=== PATIENT | female | born 1985 | race Caucasian/White ===

== ENCOUNTER → 2023-12-30 06:51 | Outpatient (REF) | payer OTHER, SELFPAY | LOC: PNTC 06:51 | PROVIDERS: ATTENDING PHYSICIAN Obstetrics & Gynecology | DX: O41.00X0 Oligohydramnios, unspecified trimester, not applicable or unspecified (principal); O34.219 Maternal care for unspecified type scar from previous cesarean delivery | CPT/HCPCS: 76816 ==

== ENCOUNTER 2024-01-27 16:42 | Inpatient (IN) | payer OTHER, SELFPAY ==
[2024-01-27 16:52] VITALS: BP 122/70; BMI 31.4
[2024-01-27] MEDS: LR 1000 IV ×3 (17:00→21:08)
[2024-01-27 17:11] LABS: Hemoglobin 10.3 g/dL (12.0-16.0); Mean Corp Hgb Conc. 33.2 g/dL (33.0-37.0); Mean Corpuscular Volume 81.4 fL (81.0-99.0); Mean Platelet Volume 9.3 fL (7.4-10.4); Platelet Count 278 10^3/uL (130-400); Red Blood Cell Count 3.81 10^6/uL (4.20-5.40); Red Cell Dist. Width 14.3 % (11.5-14.5); White Blood Cell Count 12.8 10^3/uL (4.8-10.8)
[2024-01-27] MEDS: TYLENOL 1000 MG PO (17:42)
[2024-01-27] MEDS: BICITRA 30 ML PO (17:42)
[2024-01-27] MEDS: ANCEF 10 IV (17:59)
[2024-01-27] MEDS: PITOCIN 30 UNITS/NSS 500 ML IV (18:38)
[2024-01-27] MEDS: TRANEXAMIC ACID 100 IV (21:27)
[2024-01-27] MEDS: DILAUDID 1 MG IV (22:43)
[2024-01-27] MEDS: BENADRYL 25 MG PO (22:59)
[2024-01-28] MEDS: PITOCIN 30 UNITS/NSS 500 ML IV (00:53)
[2024-01-28] MEDS: LR 1000 IV (00:54)
[2024-01-28 01:03] LABS: Hemoglobin 8.6 g/dL (12.0-16.0)
[2024-01-28] MEDS: MYLICON 80 MG PO ×2 (02:21→10:02)
[2024-01-28] MEDS: DILAUDID 1 MG IV ×3 (02:48→20:32)
[2024-01-28] MEDS: BENADRYL 25 MG IV (03:11)
[2024-01-28 07:27] LABS: % Basophils 0.2 % (0-2); % Immature Granulocytes 0.6 % (0-0.5); % Lymphocytes 9.1 % (20.5-51.1); % Monocytes 7.5 % (1.7-9.3); % Neutrophils 82.6 % (42.2-75.2); Absolute Basophils 0.1 10^3/uL (0-0.2); Absolute Immature Granulocytes 0.1 10^3/uL (0-0.05); Absolute Monocytes 1.6 10^3/uL (0.1-0.6); Hematocrit 21.7 % (37.0-47.0); Hemoglobin 7.4 g/dL (12.0-16.0); Mean Corp Hgb Conc. 34.1 g/dL (33.0-37.0); Mean Corpuscular Hgb 26.7 pg (27.0-31.0); Mean Corpuscular Volume 78.3 fL (81.0-99.0); Mean Platelet Volume 9.3 fL (7.4-10.4); Nucleated Red Blood Cells % 0 %; Platelet Count 239 10^3/uL (130-400); Red Blood Cell Count 2.77 10^6/uL (4.20-5.40); Red Cell Dist. Width 14.3 % (11.5-14.5); White Blood Cell Count 21.7 10^3/uL (4.8-10.8)
[2024-01-28] MEDS: PRENATAL PLUS 1 TABLET PO (07:50)
[2024-01-28] MEDS: SENOKOT-S 1 TABLET PO (07:50)
[2024-01-28] MEDS: BENADRYL 25 MG PO ×4 (07:50→21:51)
[2024-01-28] MEDS: NON-FORMULARY ITEM 875 MG PO ×2 (07:50→20:42)
[2024-01-28] MEDS: PERCOCET 5/325 1 TABLET PO (12:06)
[2024-01-28] MEDS: MOTRIN 600 MG PO ×2 (12:36→20:31)
[2024-01-28 16:30] LABS: Syphilis/T. pallidum Ab Reflex Negative (Negative)
[2024-01-28] MEDS: PERCOCET 5/325 2 TABLET PO ×2 (16:44→23:48)
[2024-01-28] MEDS: FERRLECIT 110 MG IV (16:45)
[2024-01-29] MEDS: MOTRIN 600 MG PO ×4 (03:34→22:12)
[2024-01-29] MEDS: PERCOCET 5/325 2 TABLET PO ×5 (03:59→22:11)
[2024-01-29] MEDS: NON-FORMULARY ITEM 875 MG PO ×2 (08:20→19:27)
[2024-01-29] MEDS: SENOKOT-S 1 TABLET PO (08:21)
[2024-01-29] MEDS: PRENATAL PLUS 1 TABLET PO (08:21)
[2024-01-29] MEDS: FERRLECIT 110 MG IV (14:05)
[2024-01-30] MEDS: MYLICON 80 MG PO (01:02)
[2024-01-30] MEDS: PERCOCET 5/325 2 TABLET PO (03:17)
[2024-01-30] MEDS: MOTRIN 600 MG PO (08:15)
[2024-01-30] MEDS: NON-FORMULARY ITEM 875 MG PO (08:15)
[2024-01-30] MEDS: PERCOCET 5/325 1 TABLET PO ×2 (08:15→12:45)
[2024-01-30] MEDS: PRENATAL PLUS 1 TABLET PO (08:15)
[2024-01-30] MEDS: SENOKOT-S 1 TABLET PO (08:15)
--- NOTE | 2024-01-30 10:47 | W.DS.TRANS ---
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
-
Discharge Instructions:
Discharge Diagnosis/Procedures rcs, anemia
Instructions:
Stand-Alone Forms: LDRP Delivery
Changes to Home Medications: No
Discharge Medications:
DC Medications w/original date entered in [facility]
Vitamin 1 tab PO DAILY Supplement 12/21/23
ibuprofen 600 mg tablet 600 mg PO Q6HPRN PRN cramps #90 tabs 01/30/24
oxycodone-acetaminophen 5 mg-325 mg tablet 1 tab PO Q4HPRN PRN moderate pain #10 tabs 01/30/24
Home Medication Changes
Pending Results: No
Total time spent discharging patient (in min): 20
[2024-01-30] MEDS: FERRLECIT IV (16:25)
== END 2024-01-30 16:43 | disposition home or self-care (01) | DRG 787 ==
LOC: LDRP 16:42
PROVIDERS: ADMITTING PHYSICIAN Obstetrics & Gynecology; ATTENDING PHYSICIAN Obstetrics & Gynecology
PROC: 10D00Z1 Extraction of Products of Conception, Low, Open Approach (ICD-10-PCS; 2024-01-27)
DX: O34.211 Maternal care for low transverse scar from previous cesarean delivery (principal); O41.03X0 Oligohydramnios, third trimester, not applicable or unspecified; O72.1 Other immediate postpartum hemorrhage; O99.02 Anemia complicating childbirth; Z3A.37 37 weeks gestation of pregnancy; Z37.0 Single live birth; N85.8 Other specified noninflammatory disorders of uterus
CPT/HCPCS: 88307; 59025; 76816; 76820; 85018; 85025; 85027; 86780; 86850; 86900; 86901; J2916

== ENCOUNTER 2024-02-01 17:31 | Emergency (ER) | payer OTHER, SELFPAY ==
[2024-02-01 17:36] VITALS: BP 125/80
--- NOTE | 2024-02-01 18:41 | ED.GENMED ---
History of Present Illness
General
Chief Complaint: DVT/Possible Blood Clot
Source: patient
Exam Limitations: none
Time Seen by Provider: 02/01/24 18:01
Travel History
Have you had any contact with someone who has COVID-19?: No
Do you have any symptoms of coronavirus? Fever > 100 degrees, chills, cough, shortness of breath, sore throat, loss of taste or smell, muscle aches, or headache?: No
History of Present Illness
History of Present Illness:
This is a 39 year old female taht comes in with c/o right arm redness and pain. States that she was here and had a on . States that she had an IV in the right arm. Today she noticed that the arm was swollen and slightly red and
hard. States that her doctor wanted her to come in and r/o a clot. States that she has had a headache. Denies any fever, chills, nausea, vomiting, diarrhea, dizziness.
Past History
Past History
ED Past Medical History: Psychiatric (Anxiety) and Other (Hemorrhagic ovarian cyst, Herniated disc, )
ED Past Surgical History: (X 3)
Social History
Tobacco: Non-smoker
Alcohol: None
Personal:
Living: with family
Family History
Family History: Negative Diabetes, Hypertension or CAD
Review of Systems
Review of Systems
All Other Systems: ROS reviewed and negative except as documented in HPI and ROS
Constitutional: Reports no symptoms; Denies fever or chills
EENT: Reports no symptoms
Respiratory: Reports no symptoms; Denies cough or trouble breathing
Cardiac: Reports no symptoms; Denies chest pain
ABD/GI: Reports no symptoms; Denies abdominal pain, nausea, vomiting or diarrhea
: Reports no symptoms
Musculoskeletal: Reports other (Right arm pain and swelling)
Skin: Reports other (Slight redness of the right arm)
Neurological: Reports headache; Denies dizzy
Psychiatric: Reports no symptoms
Phy Exam
General Physical Exam
General Presentation: well appearing and no apparent distress
General age: appears stated age
General Skin: warm and dry
General Habitus: normal
General Mental: alert
General Hydration: appears well hydrated
ENT Exam
ENT Exam: TM's normal, pharynx normal and neck supple
Eye Exam
Eye Exam: EOMI
Musculoskeletal Exam
Musculoskeletal Exam: full ROM and other (Slight swelling right forearm and hard to palpation. Peripheral pulse normal with brisk capillary refill)
Skin Exam
Skin Exam: normal color, warm/dry, no petechia and other (Very slight redness noted on forearm. Negative for increased warmth)
Psychiatric Exam
Psychiatric Exam: normal mood/affect
Course
Orders/Labs/Results
Orders:
Orders
02/01/24 17:42
US Arms, Right [US Periph Venous UPPER Ext RT] Urgent
Comment:
Reason For Exam: pain, swelling, redness, recent IV site
Vital Signs
Initial and Last Documented VS:
Initial Vital Signs
Temp Pulse Resp BP Pulse Ox
98.2 F 95 20 125/80 100
02/01/24 17:36 02/01/24 17:36 02/01/24 17:36 02/01/24 17:36 02/01/24 17:36
Last Documented Vital Signs
Temp Pulse Resp BP Pulse Ox
98.2 F 95 20 125/80 100
02/01/24 17:36 02/01/24 17:36 02/01/24 17:36 02/01/24 17:36 02/01/24 17:36
MDM/Problems Addressed
Differential Diagnosis Includes:
Phlebitis, DVT
MDM/Problems Addressed:
This is a 39 year old female that comes in with c/o right arm pain and slighlt swelling and redness. States that she had an IV in this arm when she was here for her on .
Will get US. Explained to patient that this may be a Phlebitis. Will have patient use warm compress and will place on an antibiotic.
Back into see patient. Explained that there is a thrombus but in a superficial vein. This is treated with warm compress 3-4 times daily for at least 20 min. Follow up with the family doctor for further evaluation. Return with any concerns.
Chronic conditions affecting care:
NA
Acute Exacerbation and/or Progression of Chronic Illness:
NA
*Radiology
Radiology exam reviewed: radiology read reviewed (US- No evidence of deep venous thrombosis of the right upper extremity. Thrombus seen in the right cephalic vein from the antecubital fossa to the wrist (superficial venous system) )
*Pulse Oximetry
Patient hypoxic: no
*EKG
Interpreted by ED Provider?: NA
Rate: EKG- N/A
*Emergency Medicine Physician Assistant Interpretation
Rate: Emergency Medicine Physician Assistant- N/A
*Critical Care Note
Total Time (30-74mins, 75-104mins- exclusive of procedures): Not Applicable
ED Attending Note
-
Portions of this chart may have been created with voice recognition software.� Occasional wrong word or��sound alike� substitutions may have occurred due to the inherent limitations of voice recognition software.
Discharge Plan
Departure
Patient Disposition: Home (Routine Discharge)
Date of Disposition: 02/01/24
Time of Disposition: 19:18
Patient with high blood pressure during this ER visit?: No
Condition: Good
Covid-19: Not Applicable
Discharge Problem:
Superficial venous thrombosis of right arm
Instructions: Superficial vein phlebitis and thrombosis
Prescriptions:
No Action
oxycodone-acetaminophen 5-325 mg Tablet
1 tab PO Q4HPRN PRN (Reason: moderate pain) Qty: 10 0RF
ibuprofen 600 mg Tablet
600 mg PO Q6HPRN PRN (Reason: cramps) Qty: 90 0RF
Vitamin tablet
1 tab PO DAILY
Activity Restrictions/Additional Instructions:
As discussed, your US shows that there is a superficial thrombus. This is not treated with blood thinners. Please do warm compresses to the right arm 3-4 times daily for 20 min. Follow up with the family doctor. IF YOU HAVE ANY INCREASED PAIN,
REDNESS, SWELLING OR YOU HAVE ANY OTHER CONCERNS PLEASE RETURN TO THE EMERGENCY ROOM.
Interventions
Interventions:
*Risk Screen - Suicide Last Done: 02/01/24 18:36
*General Assessment Last Done: 02/01/24 17:36
*Neglect/Abuse Screening Last Done: 02/01/24 18:36
ED- Fall Risk Assessment Last Done: 02/01/24 18:36
*ED COVID-19 Vaccine History Last Done: 02/01/24 17:36
ED- Cardiac Assessment Last Done: 02/01/24 18:35
ED- Pulmonary Assessment Last Done: 02/01/24 18:35
ED-Peripheral Vascular Assessment Last Done: 02/01/24 18:35
ED-Skin Assessment Last Done: 02/01/24 18:35
== END 2024-02-01 19:28 | disposition home or self-care (01) ==
LOC: EMR 17:31
PROVIDERS: EMERGENCY PHYSICIAN Emergency Medicine; FAMILY PHYSICIAN Internal Medicine
DX: I82.611 Acute embolism and thrombosis of superficial veins of right upper extremity (principal)
CPT/HCPCS: 99284; 93971